=== PATIENT | male | born 1940 | race Caucasian/White ===

== ENCOUNTER 2018-01-20 00:03 | Emergency (ER) | payer BC ==
[~2018-01-20] VITALS: Ht 177.8 cm; Wt 81.6 kg
[2018-01-20 00:13] VITALS: BP_SYST 149
[2018-01-20 00:25] VITALS: BP_SYST 149
[2018-01-20] MEDS ORDERED: CEPHALEXIN 500 MG CAPSULE PO ONE (00:30)
[2018-01-20] MEDS ORDERED: ACETAMINOPHEN 325 MG TABLET PO ONE (00:30)
== END 2018-01-20 00:25 | disposition home or self-care (01) ==
LOC: SED 00:03 → EDSEX 00:03 → SED 00:25
DX: S90.862A Insect bite (nonvenomous), left foot, initial encounter (principal); W57.XXXA Bitten or stung by nonvenomous insect and other nonvenomous arthropods, initial encounter; Y93.89 Activity, other specified; Y92.89 Other specified places as the place of occurrence of the external cause; Y99.8 Other external cause status
CPT/HCPCS: 99283